=== PATIENT | female | born 2000 | race Two or more races ===

== ENCOUNTER 2023-03-05 12:58 | Outpatient (CLI) | payer OTHER | END 2023-03-05 13:16 | disposition home or self-care (01) | LOC: RAD 12:58 | DX: M41.9 Scoliosis, unspecified (principal); M54.59 Other low back pain; M99.05 Segmental and somatic dysfunction of pelvic region ==

== ENCOUNTER 2023-06-18 11:53 | Outpatient (CLI) | payer OTHER | END 2023-06-18 12:00 | disposition home or self-care (01) | LOC: SONOGRAMA 11:53 | PROVIDERS: ATTEND Student in an Organized Health Care Education/Training Program | DX: R10.2 Pelvic and perineal pain (principal) ==

== ENCOUNTER 2024-05-18 05:58 | Day surgery (SDC) | payer OTHER ==
[2024-05-13 11:09] LABS: URINE APPEARANCE Clear; URINE BILIRRUBIN Negative (NEGATIVE); URINE BLOOD Negative; URINE COLOR Yellow; URINE GLUCOSE Negative (NEGATIVE); URINE LEUKOCYTE Moderate; URINE NITRATE Negative; URINE PROTEIN Negative (NEGATIVE)
[2024-05-13 11:10] LABS: URINE BACTERIA 1880.9 uL (0.0-1933); URINE EPITHELIAL CELLS 43.1 uL (0.0-38.8); URINE RBC 8.2 uL (0.0-20.8); URINE WBC 3.5 uL (0.0-23.2)
[2024-05-13 11:18] LABS: HEMOGLOBIN 12.6 g/dL (12.0-15.00); MEAN CELL VOLUME 83.1 fL (80.00-100.00); MEAN CORPUSCULAR HEMOGLOBIN 27.5 pg (27.00-32.0); MEAN CORPUSCULAR HGB CONC 33.1 g/dl (32.0-36.0); PLATELET COUNT 340 K/uL (150-450); RED BLOOD COUNT 4.58 M/uL (4.00-6.00); RED CELL DISTRIBUTION WIDTH 16.9 % (11.5-14.5)
[2024-05-13 11:48] LABS: PARTIAL THROMBOPLASTIN TIME 28.2 SECONDS (22.0-34.0); PROTHROMBIN TIME 10.5 SECONDS (9.0-11.5)
[2024-05-13 11:55] LABS: ALBUMIN 3.8 gm/dL (3.4-5.0); BILIRUBIN TOTAL 0.42 mg/dL (0.3-1.2); CALCIUM 9.5 mg/dL (8.5-10.1); CREATININE SERUM 0.62 mg/dL (0.55-1.02); GFR 119.28; GLOBULINA 3.6 G/DL (2.4-3.5); POTASSIUM 3.99 mEq/L (3.5-5.1); TOTAL PROTEIN 7.4 gm/dL (6.4-8.2)
[~2024-05-18 05:58] MED LIST: LEVOTHYROXINE25 MCG PO
[2024-05-18] MEDS ORDERED: MORPHINE SULFATE 4 MG/ML VIAL IV PRN (15:00)
[2024-05-18] MEDS ORDERED: ONDANSETRON HCL 2 MG/ML VIAL IV PRN (15:15)
== END 2024-05-18 16:55 | disposition home or self-care (01) ==
LOC: CIR.AMB 05:58
PROVIDERS: ATTEND Student in an Organized Health Care Education/Training Program
DX: N80.399 Endometriosis of the pelvic peritoneum, other specified sites, unspecified depth (principal); R10.2 Pelvic and perineal pain; N94.6 Dysmenorrhea, unspecified; Z88.6 Allergy status to analgesic agent